=== PATIENT | female | born 1950 | race Hispanic/Latino ===

== ENCOUNTER 2022-09-09 01:51 | Observation (INO) | payer MEDICARE, OTHER ==
[~2022-09-09] VITALS: Ht 160 cm; Wt 63.5 kg
[~2022-09-09 01:51] MED LIST: ASPIRIN EC81 MG PO; BENAZEPRIL HCL10 MG PO; ESIDRIX25 MG PO; GABAPENTIN300 MG PO; JANUVIA100 MG PO; MELOXICAM7.5 MG PO; METFORMIN HCL500 MG PO; OMEPRAZOLE40 MG PO; PRAVASTATIN SOD80 MG PO; TRESIBA SC; ULTRAM 50MG50 MG PO
[2022-09-09] MEDS ORDERED: ONDANSETRON HCL INJ 2MG/ML 2ML 2 MG/ML VIAL IV STA (02:11)
[2022-09-09] MEDS ORDERED: ASPIRIN 81 MG CHEW TAB ONE (02:14)
[2022-09-09 02:15] LABS: BASOPHILS % 0.5 % (0.0-1.0); EOSINOPHILS # (AUTO) 0.3 (0.0-0.4); HEMATOCRIT 35.3 % (34.2-44.1); HEMOGLOBIN 11.7 g/dL (12.0-16.0); LYMPHOCYTES # (AUTO) 2.6 (1.0-3.2); MEAN CORPUSCULAR HEMOGLOBIN 30.5 pg (28-32); MEAN CORPUSCULAR HGB CONC 33.1 g/dL (31-35); MEAN CORPUSCULAR VOLUME 91.9 fL (81-99); MONOCYTES # (AUTO) 0.4 (0.2-0.8); MONOCYTES % 7.4 % (4.4-11.3); NEUTROPHILS # (AUTO) 2.6 (2.1-6.9); NEUTROPHILS % 43.9 % (38.7-80.0); PLATELET COUNT 205 x10e3/uL (140-360); RED BLOOD COUNT 3.84 x10e6/uL (3.6-5.1); RED CELL DISTRIBUTION WIDTH 12.1 % (11.7-14.4)
[2022-09-09] MEDS ORDERED: SODIUM CHLORIDE FLUSH 10 ML SYR IV PRN (02:15)
[2022-09-09] MEDS ORDERED: ASPIRIN 81 MG CHEW TAB PO ONE ×2 (02:15→03:15)
[2022-09-09 02:29] LABS: ALANINE AMINOTRANSFERASE 13 IU/L (0-55); ALBUMIN 3.6 g/dL (3.5-5.0); ALKALINE PHOSPHATASE 88 IU/L (40-150); ANION GAP 10.5 mmol/L (8-16); BLOOD UREA NITROGEN 21 mg/dL (7-26); BUN/CREATININE RATIO 16 (6-25); CALCIUM 9.7 mg/dL (8.4-10.2); CARBON DIOXIDE 29 mmol/L (22-29); CHLORIDE 104 mmol/L (98-107); GLUCOSE 110 mg/dL (74-118); POTASSIUM 3.5 mmol/L (3.5-5.1); SODIUM 140 mmol/L (136-145)
[2022-09-09] MEDS ORDERED: SODIUM CHLORIDE FLUSH 10 ML SYR INJ PRN (03:15)
[2022-09-09] MEDS ORDERED: ONDANSETRON HCL INJ 2MG/ML 2ML 2 MG/ML VIAL IV PRN ×2 (03:15→06:15)
[2022-09-09 03:33] LABS: CREATINE KINASE MB 2.7 ng/mL (0-5.0)
[2022-09-09 03:45] VITALS: BP 152/69; PULSE 53; RESP 20; TEMP 98.4; O2SAT 100
[2022-09-09] MEDS ORDERED: NEURONTIN300 MG PO (04:01)
[2022-09-09] MEDS ORDERED: PIOGLITAZONE HC45 MG PO (04:01)
[2022-09-09] MEDS ORDERED: CYCLOBENZAPRINE10 MG PO (04:01)
[2022-09-09] MEDS ORDERED: OMEPRAZOLE40 MG PO (04:01)
[2022-09-09] MEDS ORDERED: ASPIRIN81 MG PO (04:01)
[2022-09-09] MEDS ORDERED: CALCIUM CARBON500 MG PO (04:01)
[2022-09-09] MEDS ORDERED: CRESTOR10 MG PO (04:01)
[2022-09-09] MEDS ORDERED: LATANOPROST2.5 ML OP (04:01)
[2022-09-09] MEDS ORDERED: RANOLAZINE ER500 MG (04:01)
[2022-09-09] MEDS ORDERED: LEVEMIR100 UNIT/1 SQ ×2 (04:01)
[2022-09-09] MEDS ORDERED: BENAZEPRIL HCL10 MG PO (04:01)
[2022-09-09] MEDS ORDERED: OZEMPIC0.25 MG/0. SC (04:01)
[2022-09-09] MEDS ORDERED: NITROGLYCERIN0.4 MG SL (04:01)
[2022-09-09] MEDS ORDERED: D3-5000125 MCG PO (04:01)
[2022-09-09] MEDS ORDERED: HYGROTON25 MG PO (04:01)
[2022-09-09] MEDS ORDERED: SIMETHICONE 80 MG CHEW PO PRN (06:15)
[2022-09-09] MEDS ORDERED: MELATONIN 3 MG TAB PO PRN (06:15)
[2022-09-09] MEDS ORDERED: ACETAMINOPHEN 325 MG TAB PO PRN (06:15)
[2022-09-09] MEDS ORDERED: INSULIN DETEMIR 18 UNIT SQ SCH (07:30)
[2022-09-09 08:00] VITALS: BP 137/66; PULSE 62; RESP 16; TEMP 97.6; O2SAT 100
[2022-09-09] MEDS: RANOLAZINE 500 MG TABSR PO SCH ×2 (08:32→17:50)
[2022-09-09] MEDS: INSULIN GLARGINE 100 UNITS/ML VIAL SQ SCH (08:33)
[2022-09-09] MEDS: METOPROLOL TARTRATE 25 MG TAB PO SCH ×2 (08:36→17:51)
[2022-09-09] MEDS: CYCLOBENZAPRINE HCL 10 MG TAB PO SCH ×3 (08:38→22:27)
[2022-09-09] MEDS: PANTOPRAZOLE SOD 40 MG TABEC PO SCH (08:38)
[2022-09-09] MEDS: ASPIRIN 81 MG ENTERIC COATED PO SCH (08:38)
[2022-09-09] MEDS: GABAPENTIN 300 MG CAP PO SCH ×3 (08:38→22:27)
[2022-09-09 09:00] VITALS: BP 137/66; PULSE 62; RESP 16; TEMP 97.6; O2SAT 100
[2022-09-09 13:05] LABS: CREATINE KINASE 99 IU/L (29-168)
[2022-09-09] MEDS ORDERED: ENOXAPARIN SOD INJ 40 MG/0.4 ML SYR SC SCH (17:00)
[2022-09-09 17:13] VITALS: BP 126/65; PULSE 68; RESP 18; TEMP 97.8; O2SAT 100
[2022-09-09 20:00] VITALS: BP 125/61; PULSE 57; RESP 18; TEMP 97.7; O2SAT 99
[2022-09-09] MEDS ORDERED: ATORVASTATIN 40 MG TAB PO SCH (21:00)
[2022-09-09] MEDS ORDERED: LATANOPROST(OPTH) 2.5 ML BTL OP SCH (21:00)
[2022-09-10 05:00] VITALS: BP 113/61; PULSE 52; RESP 18; TEMP 97.2; O2SAT 100
[2022-09-10 05:06] LABS: BASOPHILS % 0.6 % (0.0-1.0); EOSINOPHILS # (AUTO) 0.3 (0.0-0.4); EOSINOPHILS % 5.7 % (0.0-6.0); HEMATOCRIT 35.1 % (34.2-44.1); HEMOGLOBIN 11.6 g/dL (12.0-16.0); LYMPHOCYTES # (AUTO) 2.1 (1.0-3.2); LYMPHOCYTES % 42.9 % (18.0-39.1); MEAN CORPUSCULAR HEMOGLOBIN 30.8 pg (28-32); MEAN CORPUSCULAR VOLUME 93.1 fL (81-99); MONOCYTES # (AUTO) 0.4 (0.2-0.8); NEUTROPHILS # (AUTO) 2.1 (2.1-6.9); NEUTROPHILS % 42.6 % (38.7-80.0); PLATELET COUNT 195 x10e3/uL (140-360); RED BLOOD COUNT 3.77 x10e6/uL (3.6-5.1)
[2022-09-10 05:47] LABS: CHOL/HDL RATIO 3.5 (3.0-3.6); CREATINE KINASE 59 IU/L (29-168)
[2022-09-10 05:49] LABS: ALBUMIN 3.1 g/dL (3.5-5.0); ALBUMIN/GLOBULIN RATIO 0.9 (0.8-2.0); ANION GAP 11.8 mmol/L (8-16); CALCIUM 9.3 mg/dL (8.4-10.2); CREATININE, SERUM 1.43 mg/dL (0.57-1.11); POTASSIUM 3.8 mmol/L (3.5-5.1)
[2022-09-10] MEDS: PANTOPRAZOLE SOD 40 MG TABEC PO SCH (07:56)
[2022-09-10] MEDS: RANOLAZINE 500 MG TABSR PO SCH (07:56)
[2022-09-10] MEDS: INSULIN GLARGINE 100 UNITS/ML VIAL SQ SCH (07:58)
[2022-09-10 08:54] VITALS: BP 123/64; PULSE 54; RESP 17; TEMP 97.8; O2SAT 97
[2022-09-10] MEDS: GABAPENTIN 300 MG CAP PO SCH (09:40)
[2022-09-10] MEDS: CYCLOBENZAPRINE HCL 10 MG TAB PO SCH (09:40)
[2022-09-10] MEDS: ASPIRIN 81 MG ENTERIC COATED PO SCH (09:41)
[2022-09-10] MEDS: METOPROLOL TARTRATE 25 MG TAB PO SCH (09:41)
[2022-09-10] MEDS ORDERED: LOPRESSOR25 MG PO (09:57)
== END 2022-09-10 12:56 | disposition home or self-care (01) ==
LOC: ER 01:56 → ERHOLD 03:10 → MED/SURG 03:30
PROVIDERS: ADMIT Internal Medicine; ATTEND Internal Medicine
DX: R07.89 Other chest pain (principal); E11.22 Type 2 diabetes mellitus with diabetic chronic kidney disease; I12.9 Hypertensive chronic kidney disease with stage 1 through stage 4 chronic kidney disease, or unspecified chronic kidney disease; N17.9 Acute kidney failure, unspecified; N18.9 Chronic kidney disease, unspecified; E78.5 Hyperlipidemia, unspecified; E66.9 Obesity, unspecified; D64.9 Anemia, unspecified; E11.40 Type 2 diabetes mellitus with diabetic neuropathy, unspecified; Z88.4 Allergy status to anesthetic agent; Z20.822 Contact with and (suspected) exposure to COVID-19; Z79.82 Long term (current) use of aspirin; Z79.4 Long term (current) use of insulin; Z79.84 Long term (current) use of oral hypoglycemic drugs; Z79.85 Long-term (current) use of injectable non-insulin antidiabetic drugs; Z79.899 Other long term (current) drug therapy; Z87.440 Personal history of urinary (tract) infections
CPT/HCPCS: 0223U; 36415 ×2; 71046; 80053 ×2; 80061; 82550 ×2; 82553 ×2; 82948; 83880; 84484 ×2; 85025 ×2; 93005; 93306; 94760; 99284; G0378 ×2; J1650; J1815; S0164 ×2